=== PATIENT | female | born 1970 | race Caucasian/White ===

== ENCOUNTER 2020-03-06 07:37 | Outpatient (CLI) | payer OTHER, SELFPAY ==
--- NOTE | ~2020-03-06 | MM_ITS ---
EXAMINATION: MM screening [facility] HISTORY: Screening mammogram TECHNIQUE: Craniocaudal and mediolateral oblique 3-D tomosynthesis images were obtained and synthetic 2-D images were generated. CAD analysis was submitted and interpreted. COMPARISON: 02/03/2019, 06/28/2013 BREAST PARENCHYMAL COMPOSITION: The breasts are almost entirely fatty. FINDINGS: There is no evidence of suspicious mass, calcification, or architectural distortion to sugg est malignancy in either breast. There has been no suspicious interval change. IMPRESSION: 1. No mammographic evidence of malignancy. 2. Recommend routine screening mammography in one year. BI-RADS Category 1: Negative Reviewed, dictated and finalized at location A.
== END 2020-03-06 07:38 | disposition home or self-care (01) ==
PROVIDERS: Visit Provider Nurse Practitioner Obstetrics & Gynecology
DX: Z12.31 Encounter for screening mammogram for malignant neoplasm of breast (principal)
CPT/HCPCS: 77063; 77067

== ENCOUNTER 2020-09-18 18:22 | Emergency (ER) | payer OTHER, SELFPAY ==
--- NOTE | ~2020-09-18 | XR_ITS ---
EXAMINATION: XR hand LT 2V INDICATION: Left fourth and fifth proximal phalanx fractures post reduction TECHNIQUE: Two views of the left hand are obtained. COMPARISON: 1924 hours FINDINGS: Comminuted fractures at the bases of the fourth and fifth proximal phalanges are again note d. The fractures have been reduced to near-anatomic position. Slight varus angulation persists at the fifth proximal phalanx fracture site. Soft tissue swelling surrounds the fractures. No additional fr acture is identified. There does appear to be partial subluxation at the third metacarpophalangeal phil int. IMPRESSION: 1. Reduced fractures of the fourth and fifth proximal phalanges in near anatomic alignment. 2. Apparent subluxation at the third metacarpophalangeal joint. Reviewed, dictated and finalized at location A. [employer] IMPRESSION: 1. Reduced fractures of the fourth and fifth proximal phalanges in near anatomi c alignment. 2. Apparent subluxation at the third metacarpophalangeal joint.
--- NOTE | ~2020-09-18 | XR_ITS ---
EXAMINATION: XR hand LT 2V INDICATION: Left hand swelling, initial encounter TECHNIQUE: Two views of the left hand are obtained. COMPARISON: None available FINDINGS: There is an acute, traumatic, closed, comminuted transverse fracture at the base of the fou rth proximal phalanx. An acute, traumatic, closed, comminuted fracture is also seen at the base of th e fifth proximal phalanx. There appears to be palmar dislocation of the distal fracture fragment. Sof t tissue swelling surrounds the fractures. No additional acute osseous findings are evident. IMPRESSION: 1. Comminuted fractures at the bases of the fourth and fifth proximal phalanges. Reviewed, dictated and finalized at location A. [employer] IMPRESSION: 1. Comminuted fractures at the bases of the fourth and fifth proximal phalanges .
[2020-09-18 18:46] VITALS: BP 160/92; PULSE 72; RESP 18; TEMP 36.8; O2SAT 100
[2020-09-18] MEDS: KETOROLAC (*BKC) 60 MG/2 ML VIAL IM (19:05)
[2020-09-18] MEDS: TETANUS,DIPHTHERIA,AC PERTUSSIS ADULT 0.5 ML (ADACEL) IM (19:11)
--- NOTE | 2020-09-18 20:33 | ED.UPPEXIN ---
HPI - Extremity Injury (Upper) General Chief Complaint: Extremity Injury, Upper Stated Complaint: hand injury Source: patient and family Mode of arrival: ambulatory Limitations: no limitations History of Present Illness HPI narrative: this is a 50-year-old female that sustained a ground level fall after she tripped causing injury with some deformity dislocation of her left 4th and 5th fingers, has small abrasion to the 4th finger, there is no wrist pain has good range of motion in her wrists with a strong radial pulse on the left with no numbness or tingling in her fingers. complaint: injury to: left Onset (ago): hour(s) Other Extremity Injury: Left: fingers ( 4th and 5th finger injury with deformity) Other injuries: none Handedness: right Place: outdoors Severity: moderate Severity scale (1-10): 7 Relieving factors: cold therapy and immobilization Exacerbating factors: movement of extremity Context: fall Related Data Home Medications Medication Instructions Recorded Confirmed levothyroxine 75 mcg PO DAILY 09/18/20 09/18/20 Allergies Allergy/AdvReac Type Severity Reaction Status Date / Time No Known Allergies Allergy Verified 09/18/20 18:55 Review of Systems Review of Systems: All systems reviewed & are unremarkable except as noted in HPI and below PMFSH Past Medical History Medical History Hypothyroidism (acquired) Exam Const: General: no acute distress Orientation/consciousness: patient oriented x3 HENMT: Head: normal to inspection Eyes: Conjunctivae: conjunctivae normal Pupils: Equal, round and reactive pupils present Neck: Neck: normal visual inspection Chest: Chest palpation & inspection: normal inspection of the chest Cardio: Rate: regular rate Rhythm: regular rhythm GI: GI Palp: Yes Soft to palpation Auscultation: normal bowel sounds : General: Yes no CVA tenderness Skin: General skin exam: normal color Other: abrasions to the left 4th finger Neuro: General: patient oriented x3 Other: has mildly decreased range of motion in her 4th and 5th finger after a fall and dislocation of her 3rd 4th and 5th finger Extrem: General: edema Other: bruising and swelling with dislocation of her 3rd 4th and 5th finger Psych: Mental Status: mental status grossly normal Course Course Emergency Course: patient received Toradol, shot of morphine and updated with her tetanus. Review the x-rays which showed a fracture of the base of the 4th and 5th fingers with dislocation. Patient was given a digital nerve block and reduce the dislocation and and splinted the the fingers and hand Vital Signs Vital signs: Vital Signs Temperature 36.8 C 09/18/20 18:46 Pulse Rate 72 09/18/20 18:46 Respiratory Rate 18 09/18/20 18:46 Blood Pressure 160/92 H 09/18/20 18:46 Pulse Oximetry 100 09/18/20 18:46 Temperature 36.8 C 09/18/20 18:46 Pulse Rate 72 09/18/20 18:46 Respiratory Rate 18 09/18/20 18:46 Blood Pressure 160/92 H 09/18/20 18:46 Pulse Oximetry 100 09/18/20 18:46 Procedures Nerve Block Nerve Block 1: Nerve block date: 09/18/20 Nerve block time: 20:37 Time out performed: Yes Local Anesthetic: lidocaine 1% Amount of anesthesia used (mL): 5 Nerve Blocks: digital Patient Tolerated Procedure: well Additional Comments: reduced the dislocation of the left 3rd 4th and 5th fingers Critical Care Time Critical Care Time Critical Care Time: No Discharge Plan Discharge Clinical Impression: Dislocation of finger Qualifiers: Encounter type: initial encounter Qualified Code(s): S63.259A - Unspecified dislocation of unspecified finger, initial encounter Finger fracture, left Qualifiers: Encounter type: initial encounter Finger: ring finger Fracture type: closed Phalanx: proximal Fracture alignment: nondisplaced Qualified Code(s): S62.645A - Nondisplaced fra
[2020-09-18] MEDS: MORPHINE SULFATE (*CRX) 4 MG/ML INJ 2 MG IM (20:40)
[2020-09-18 20:59] VITALS: BP 120/86; PULSE 76; RESP 18; O2SAT 100
--- NOTE | 2020-09-20 10:39 | PM.IMHP ---
H&P: HPI History of Present Illness Date/Time: 09/20/20 10:45 Chief complaint: hand injury Narrative: Alena Aguilar is a 50 year old female fell on left outstretched hand 09/18/20. Evaluated in [place] [facility] and found to have fx/ dislocation left hand and fingers. Presents now for operative tx. Review of Systems Constitutional: Constitutional: Denies fever(s) Eyes: Eyes: Denies blurry vision ENT: Reports Normal hearing present Cardiovascular: Cardiovascular: Denies chest pain and Denies dyspnea Respiratory: Respiratory: Denies dyspnea and Denies wheezing Gastrointestinal: Gastrointestinal: Denies abdominal pain Genitourinary: Genitourinary: Denies urinary urgency Musculoskeletal: Musculoskeletal: Reports as per HPI and Denies numbness Integumentary/Breasts: Skin/Breast: Denies changing lesions and Denies sores Neurologic: Reports Normal hearing present, Denies behavioral changes, Denies confusion, Denies numbness and Denies convulsions Psychiatric: Psychiatric: Denies behavioral changes, Denies confusion and Denies hallucinations Endocrine: Endocrine: Denies heat intolerance Hematologic/Lymphatic: Hematologic/Lymphatic: Denies easy bleeding Allergic/Immunologic: Allergic/Immunologic: Denies wheezing PMFSH Past Medical History Medical History Hypothyroidism (acquired) Meds Home Medications and Allergies Home Medications Medication Instructions Recorded Confirmed Type levothyroxine 75 mcg PO DAILY 09/18/20 09/18/20 History oxycodone-acetaminophen [Percocet] 1 tablet PO Q6H PRN #20 tablet 09/18/20 Rx Allergies Allergy/AdvReac Type Severity Reaction Status Date / Time No Known Allergies Allergy Verified 09/18/20 18:55 Exam Const: General: healthy appearing; No in distress or confusion Orientation/consciousness: oriented to person, oriented to place, oriented to time and No confusion HENMT: Head: normal to inspection, normocephalic and atraumatic Eyes: Conjunctivae: conjunctivae normal Sclera: sclerae normal Neck: Neck: supple and nontender Resp: Effort & Inspection: normal respiratory effort and no audible wheezes Cardio: Rate: regular rate Rhythm: regular rhythm Skin: General skin exam: no rashes or lesions noted Neuro: General: oriented to person, oriented to place, oriented to time and No confusion Extrem: Right upper extremity: normal to inspection Left upper extremity: shoulder/upper arm no tenderness and no swelling, elbow/forearm no tenderness and no swelling, wrist normal ROM and radial pulse present 2+; no tenderness and no swelling and hand normal capillary refill, neuromotor exam normal, neurosensory exam normal Details: radial nerve sensory function normal, ulnar nerve sensory function normal, median nerve sensory function normal and digital nerve sensory function normal, tenderness of the 5th digit ( metacarpal neck), vascular exam normal capillary refill and abnormal ROM of finger (able to make 50% of fist) pain with active ROM of the 5th digit Psych: Affect: normal affect Assessment and Plan Assessment and plan (1) Finger fracture, left: Qualifiers: Encounter type: initial encounter Finger: ring finger Fracture alignment: displaced Fracture type: closed Phalanx: proximal Qualified Code(s): S62.615A - Displaced fracture of proximal phalanx of left ring finger, initial encounter for closed fracture Code(s): S62.609A - Fracture of unspecified phalanx of unspecified finger, initial encounter for closed fracture Status: Inactive Assessment and Plan: Discussed nonoperative and operative treatment options with the patient. Risks and benefits of each as well as alternatives were reviewed. All of the patient's questions were answered. The risks of surgery reviewed including but not limited to: Neurovascular damage, wound complication, infection, blood clot, pulmonary embolus, strok
== END 2020-09-18 20:59 | disposition home or self-care (01) ==
PROVIDERS: Emergency Provider Emergency Medicine
DX: S63.259A Unspecified dislocation of unspecified finger, initial encounter (principal); S62.645A Nondisplaced fracture of proximal phalanx of left ring finger, initial encounter for closed fracture; W01.0XXA Fall on same level from slipping, tripping and stumbling without subsequent striking against object, initial encounter
CPT/HCPCS: 26770; 73120; 90471; 90715; 96372; 99283; 99285; J1885; J2270

== ENCOUNTER 2020-09-20 10:37 | Outpatient (NON) | payer OTHER, SELFPAY ==
[2020-09-20 20:16] LABS: SARS-CoV-2 RNA PCR Negative
== END 2020-09-20 10:38 ==
LOC: ANHCOVIDDT 10:38
PROVIDERS: Visit Provider Orthopaedic Surgery
DX: S63.259A Unspecified dislocation of unspecified finger, initial encounter (principal); X58.XXXA Exposure to other specified factors, initial encounter; Z20.828 Contact with and (suspected) exposure to other viral communicable diseases
CPT/HCPCS: 87635; C9803; U0003

== ENCOUNTER 2020-09-22 10:49 | Day surgery (SDC) | payer OTHER, SELFPAY ==
[2020-09-22] VITALS (10 sets, daily range): BP systolic 97–131; BP diastolic 59–79; PULSE 63–100; RESP 8–16; TEMP 36.5; O2SAT 96–100; BMI 28.0
--- NOTE | ~2020-09-22 | XR_ITS ---
EXAMINATION: XR surgery orthopedic DATE: 09/22/2020 13:49 INDICATION: Pinning of fracture at the left fourth and fifth proximal phalanges. TECHNIQUE: 4 fluoroscopic images of the left hand were obtained during procedure performed by Dr. Dawn pandey. Radiologist was not present for the imaging or procedure. The amount of fluoroscopy time used d uring this procedure was 0.7 minutes. COMPARISON: 09/18/2020 FINDINGS: Interval reduction of the previously noted extra articular fractures at the proximal metaphyseal kraig ons of the left fourth and fifth proximal phalanges. Both fractures are subsequently fixed percutaneo us pins extending from the bases of the phalanges distally to the heads of the proximal phalanges. Do rsal dislocation at the third metacarpal phalangeal joint also appears to been reduced but without fi xation. Alignment is near-anatomic. No other fractures identified. IMPRESSION: 1. Fluoroscopy utilized during reduction of a third metacarpophalangeal dislocation and reduction and percutaneous pin fixation of extra articular fractures at the bases of the fourth and fifth proximal phalanges. See procedure note for further detail. Reviewed, dictated and finalized at location B. [employer]ER IMPRESSION: 1. Fluoroscopy utilized during reduction of a third metacarpophalangeal disloca tion and reduction and percutaneous pin fixation of extra articular fractures a t the bases of the fourth and fifth proximal phalanges. See procedure note for further detail.
--- NOTE | 2020-09-22 10:47 | WPDHPUPDATE1 ---
History and Physical Update Update Date/Time: 09/22/20 10:47 History and Physical has been reviewed, including an updated exam of the patient. There are NO changes in the patient's condition. Covid test negative. Risks, benefits, and alternatives have been discussed and questions answered. Patient agrees to proceed with procedure.
--- NOTE | 2020-09-22 11:21 | WPDANESEPPF ---
Anes - Initial Pre Proc Eval Procedure: Operation Date: 09/22/20 12:30 Proposed Procedures p Closed Reduction, Possible Pinning Left Third, Fourth, Fifth Fingers - Nick Martino MD Date/Time: 09/22/20 11:21 Surgeon: Nick Martino MD Pre Op Diagnosis: Fx Left 3,4,5, fingers Patient Data Age: 50 Gender: F Height: 1.75 m Weight: 89.6 kg Last Vital Signs Temp 36.5 C 09/22/20 10:51 Pulse 67 09/22/20 10:51 Resp 16 09/22/20 10:51 BP 130/79 09/22/20 10:51 Pulse Ox 98 09/22/20 10:51 Allergies Allergy/AdvReac Type Severity Reaction Status Date / Time No Known Allergies Allergy Verified 09/22/20 11:18 Home Medications Medication Instructions Recorded Confirmed Type levothyroxine 75 mcg PO QAM 09/18/20 09/22/20 History oxycodone-acetaminophen [Percocet] 1 tablet PO Q6H PRN #20 tablet 09/18/20 09/22/20 Rx esomeprazole magnesium [Nexium] 20 mg PO DAILY 09/22/20 09/22/20 History ibuprofen 400 mg PO Q6H PRN 09/22/20 09/22/20 History Patient hx anesthesia problems: none Family hx anesthesia problems: none [facility] Past Medical History Medical History (Updated 09/22/20 @ 11:22 by Demario Flores DO) GERD (gastroesophageal reflux disease) Hypothyroidism (acquired) Surgical History Surgical History (Updated 09/22/20 @ 11:22 by Demario Flores DO) History of Social History Social History Smoking status: Never smoker Alcohol use details: FEW DRINKS/YEAR Substance use: never Living arrangements: with family Spiritual care concerns: No Anes - Eval Final PreProcedure Day of Procedure 09/22/20 11:21 Patient weight: overweight Heart: regular rate and rhythm Lungs: clear to auscultation and normal air movement Airway: Mallampati scale class II Neurological: alert and oriented Last oral intake: >/= 8 hours ASA classification: II Emergent: no Anesthetic plan: proceed Anesthesia type and monitoring: general LMA and standard monitoring Informed Consent: The patient's anesthetic plan and its attendant risks and benefits were discussed with the patient/family/POA. Questions were solicited and answers provided to the satisfaction of the patient/family/POA.
[2020-09-22] MEDS: LACTATED RINGERS 1,000 ML 30 ML IV CONT (11:25)
--- NOTE | 2020-09-22 11:45 | SUR.PREOP ---
1120-2ND DIGIT LEFT HAND WITH POSITIVE SENSATION TO SIDE CLOSEST TO THUMB, NO SENSATION TO SIDE NEXT TO 3RD DIGIT, SLIGHT MOVEMENT. 3RD DIGIT WITH NO SENSATION TO SIDE NEXT TO 2ND DIGIT, POSITIVE SENSATION ON SIDE NEXT TO 4TH DIGIT, NO MOVEMENT. 4TH DIGIT WITH POSITIVE SENSATION AND MOVEMENT. ALL FINGERS BRUISED AND SWOLLEN. SPLINT IN PLACE TO LEFT HAND/WRIST AND NOT REMOVED.
[2020-09-22] MEDS: ceFAZolin 2 GM/D5W 50 ML 2 GM/50 ML BAG IVPB (13:08)
--- NOTE | 2020-09-22 14:15 | P.OP_ITS ---
Procedure Note - Detailed Date of procedure: 09/22/20 Pre-op diagnosis: Fx Left 3,4,5, fingers Metacarpal phalangeal dislocation left middle finger, proximal phalanx fracture left 4th and 5th finger Post-op diagnosis: same Procedure performed: Closed reduction left middle finger metacarpophalangeal dislocation, closed reduction percutaneous pin fixation left ring and small finger proximal phalanx fractures Description of procedure: Indications: Patient is a 50-year-old woman who fell onto her left outstretched hand sustained injury to the left middle ring and small fingers. She has a dislocation of the middle finger metacarpophalangeal joint. She has displaced and angulated fractures of the ring and small fingers. She presents now for operative treatment. What was done: Patient identified in the preoperative holding. Informed consent given. Operative extremity marked. Patient received intravenous antibiotics. Patient brought to the operating room where underwent general anesthetic by anesthesia team. Positioned supine on operating room table. Time-out performed confirming the patient, site of the surgery and the plan. Left hand prepped draped usual sterile surgical fashion using a ChloraPrep skin solution. The middle finger was addressed 1st. With gentle longitudinal and palmar directed distraction and displacement the metacarpophalangeal joint was able to be reduced with a palpable clunk. Image intensification confirmed reduction and stability of the joint. The ring finger was then addressed next. Longitudinal traction and palmar directed force the fracture was reduced and verified with image intensification. Fixation achieved with a 0.045 in K-wire placed percutaneously and verified with image intensification. The small finger was then addressed next. Longitudinal traction and palmar directed force the fracture was reduced and verified with image intensification. Fixation achieved with a 0.045 in K-wire placed percutaneously and verified with image intensification. Sterile dressing applied. Well-padded short-arm splint applied The patient was then woken from anesthesia, extubated and taken to the recovery room in stable condition. All sponge, needle, instrument counts were correct at the end of the case. Implants: 0.045 in K-wire x2 Anesthesia: GLMA Surgeon: Nick Martino MD Energy Assistant: 1st quality assurance assistant Estimated blood loss (mL): 2 Tourniquet time (min): 0 Drains: No Packing: No Pathology: none sent Complications: None Condition: stable Disposition: PACU Findings: Preoperatively light touch sensation decreased on the radial border of the middle finger and ulnar border of the index finger left hand. Good capillary refill in all fingers and light touch sensation intact throughout all other areas. After surgery good alignment of the fingers with no scissoring. Good capillary refill noted in all the fingertips.
[2020-09-22] MEDS: fentaNYL CITRATE INJ (*CRX) 100 MCG/2 ML VIAL 25 MCG IV PUSH ×2 (14:37→14:40)
[2020-09-22] MEDS: oxyCODONE HCL (*CRX) 5 MG TAB IR PO (15:29)
== END 2020-09-22 16:13 | disposition home or self-care (01) ==
PROVIDERS: Visit Provider Orthopaedic Surgery
PROC: (CPT 26705; principal; 2020-09-22 12:30)
DX: S62.615A Displaced fracture of proximal phalanx of left ring finger, initial encounter for closed fracture (principal); S62.617A Displaced fracture of proximal phalanx of left little finger, initial encounter for closed fracture; S63.263A Dislocation of metacarpophalangeal joint of left middle finger, initial encounter; W19.XXXA Unspecified fall, initial encounter; K21.9 Gastro-esophageal reflux disease without esophagitis; E03.9 Hypothyroidism, unspecified
CPT/HCPCS: 26705; 26735 ×2; A4565; A9270; C1713; J0690; J1100; J2250; J2405; J2704; J3010; J7120

== ENCOUNTER 2020-09-30 07:57 | Outpatient (CLI) | payer OTHER, SELFPAY ==
[2020-10-01 07:13] LABS: Hematocrit 37.8 % (35.0-49.0); Hemoglobin 12.3 g/dL (12.0-15.0); Mean Corpuscular HGB Conc 32.5 g/dL (32.0-36.0); Mean Corpuscular Hemoglobin 28.8 pg (27.0-31.0); Mean Corpuscular Volume 88.5 fL (78.0-102.0); Mean Platelet Volume 8.9 fl (9.2-11.8); Platelet Count Result 296 K/mm3 (150-420); Red Blood Count 4.27 M/mm3 (4.20-5.40); Red Cell Distribution Width 12.5 % (11.6-14.4); White Blood Count 5.5 K/mm3 (4.8-10.8)
[2020-10-01 08:15] LABS: Alanine Aminotransferase 37 U/L (14-59); Alkaline Phosphatase 127 U/L (46-116); Anion Gap 6 mmol/L (8-16); Aspartate Amino Transferase 18 U/L (15-37); Bilirubin,Total 0.6 mg/dL (0.00-1.00); Blood Urea Nitrogen 13 mg/dL (7-18); Calcium 8.9 mg/dL (8.5-10.1); Carbon Dioxide 30 mmol/L (21-32); Chloride 103 mmol/L (98-108); Cholesterol 187 mg/dL (0-200); Estimated Glomerular Filt Rate > 60; Glucose 81 mg/dL (70-99); HDL Direct 65 mg/dL (40-60); LDL Cholesterol Calculated 107 mg/dL (<130); Osmolality Calculated 287 mOsm/kg (285-295); Potassium 3.7 mmol/L (3.5-5.1); Sodium 139 mmol/L (136-145); Total Protein 7.5 g/dL (6.4-8.2); Triglycerides 74 mg/dL (0-150)
[2020-10-01 09:30] LABS: Thyroid Stimulating Hormone Reflex 0.52 u/IU/mL (0.36-3.74)
[2020-10-02 15:56] LABS: H pylori, Urea Breath NOT DETECTED (NOT DETECTED)
== END 2020-09-30 07:58 | disposition home or self-care (01) ==
LOC: CHSLAB 08:01
PROVIDERS: PCP Family Medicine; Visit Provider Family Medicine
DX: E03.9 Hypothyroidism, unspecified (principal); K21.9 Gastro-esophageal reflux disease without esophagitis
CPT/HCPCS: 36415; 80053; 80061; 83013; 84443; 85027

== ENCOUNTER 2020-10-27 07:48 | Outpatient (RCR) | payer OTHER, SELFPAY ==
--- NOTE | 2020-10-27 08:30 | OTOPEVAL ---
Thank you for referring Alena Aguilar to [facility].? The patient is scheduled to be seen for therapy? ____x/week for ___ weeks. Please review, sign, date and return this plan of care RANDOLPH. I agree with and certify that the following plan of care is medically necessary. Referring Physician Date Admitting Provider: Attending Provider: Nick Martino MD Referring Provider: *OT Outpatient Evaluation Start: 10/27/20 07:06 Freq: Status: Active Protocol: [place] 10/27/[place] 07:06 [facility] [place]27[place] 08[place]27 [facility] [id number] Therapy Assessment Status Assessment Status Assessment Status Evaluation Outpatient Past Medical History Neurological History Hx Neurological Disorders No Significant History Cardiovascular History Hx Cardiac Disorders No Significant History Respiratory History Hx Respiratory Disorders No Significant History Gastrointestinal History Hx Gastroesophageal Reflux Disease Yes Genitourinary History Hx Genitourinary Disorders No Significant History Musculoskeletal History Hx Fractures Yes: FRACTURES LT 3,4,5 FINGERS 09/18/20 Hematological History Hx Hematological Disorders No Significant History Endocrine History Hx Hypothyroidism Yes HEENT History Hx HEENT Disorders No Significant History Integumentary History Hx Skin Disorders No Significant History Reproductive History Hx Section Yes Hx Post Menopausal Yes Psychosocial History Hx Psychiatric Disorders No Significant History Pain History History of Any Previous or Ongoing No Significant History Instance of Pain Anesthesia History Hx Anesthesia Reactions No Significant History Evaluation Information Problem Diagnosis middle, ring and small finger fractures Onset 09/18/20 Subjective Information Patient reports that she fell Query Text:As Reported By Patient/ and dislocated her L middle Family finger and dislocated and fractured the ring and small fingers. She had surgery on 09/22/20 with pins placed and those were removed last tuesday. Patient reports that she has been trying to move it however it is very swollen and it is difficult to move. Patient has been issued an orthosis to wear if needed. 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
--- NOTE | 2020-11-12 08:16 | OTOPEVAL ---
Thank you for referring Alena Aguilar to [facility].? The patient is scheduled to be seen for therapy? ____x/week for ___ weeks. Please review, sign, date and return this plan of care RANDOLPH. I agree with and certify that the following plan of care is medically necessary. Referring Physician Date Admitting Provider: Attending Provider: Nick Martino MD Referring Provider: *OT Outpatient Evaluation Start: 10/27/20 07:06 Freq: Status: Active Protocol: Document 11/12/20 07:00 [facility] [place]Rec: 11/12/20 08:15 [facility] [place] [id number] Therapy Assessment Status Assessment Status Assessment Status Re-evaluation Outpatient Past Medical History Neurological History Hx Neurological Disorders No Significant History Cardiovascular History Hx Cardiac Disorders No Significant History Respiratory History Hx Respiratory Disorders No Significant History Gastrointestinal History Hx Gastroesophageal Reflux Disease Yes Genitourinary History Hx Genitourinary Disorders No Significant History Musculoskeletal History Hx Fractures Yes: FRACTURES LT 3,4,5 FINGERS 09/18/20 Hematological History Hx Hematological Disorders No Significant History Endocrine History Hx Hypothyroidism Yes HEENT History Hx HEENT Disorders No Significant History Integumentary History Hx Skin Disorders No Significant History Reproductive History Hx Section Yes Hx Post Menopausal Yes Psychosocial History Hx Psychiatric Disorders No Significant History Pain History History of Any Previous or Ongoing No Significant History Instance of Pain Anesthesia History Hx Anesthesia Reactions No Significant History Evaluation Information Problem Subjective Information Patient reports that she feels Query Text:As Reported By Patient/ like she is progressing a Family little more with each day. She reports that this weekend she was able to clean her house without assist and is able to now grasp a coffee cup . Patient is making progress on being able to open a door knob more consistently. 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 Pain Assessment Timing of Pain Assessment Timing of Pain Assessment Pre-Treatment Self Report Self Report Pain Level 0 Pain Score Pain Score 0: Self Report Upper Extremity Range of Motion Wrist Range of Motion Left Wrist Flexion - Active 70 Wrist Extension - Active 55 Finger Range of Motion Left
--- NOTE | 2020-12-09 13:26 | OTOPEVAL ---
Thank you for referring Alena Aguilar to [facility].? The patient is scheduled to be seen for therapy? ____x/week for ___ weeks. Please review, sign, date and return this plan of care RANDOLPH. I agree with and certify that the following plan of care is medically necessary. Referring Physician Date Admitting Provider: Attending Provider: Nick Martino MD Referring Provider: *OT Outpatient Evaluation Start: 10/27/20 07:06 Freq: Status: Active Protocol: Document 12/09/20 07:12 [facility] (Rec: 12/09/20 08:05 [facility] [id number]) Therapy Assessment Status Assessment Status Assessment Status Re-evaluation Outpatient Past Medical History Neurological History Hx Neurological Disorders No Significant History Cardiovascular History Hx Cardiac Disorders No Significant History Respiratory History Hx Respiratory Disorders No Significant History Gastrointestinal History Hx Gastroesophageal Reflux Disease Yes Genitourinary History Hx Genitourinary Disorders No Significant History Musculoskeletal History Hx Fractures Yes: FRACTURES LT 3,4,5 FINGERS 09/18/20 Hematological History Hx Hematological Disorders No Significant History Endocrine History Hx Hypothyroidism Yes HEENT History Hx HEENT Disorders No Significant History Integumentary History Hx Skin Disorders No Significant History Reproductive History Hx Section Yes Hx Post Menopausal Yes Psychosocial History Hx Psychiatric Disorders No Significant History Pain History History of Any Previous or Ongoing No Significant History Instance of Pain Anesthesia History Hx Anesthesia Reactions No Significant History Evaluation Information Problem Subjective Information Patient reports that she is Query Text:As Reported By Patient/ feels that her L hand gets to Family be stretched out and moving well but then wakes up the next morning and it is stiff again. Patient reports that when her hand is stiff in the mornings turning door knobs is difficult. She also reports difficulty opening tight jars and picking up small objects. Patient is able to drive with increased ease of grasping steering wheel as well as perform cooking, cleaning, laundry without assist. Patient was also able to recently perform the rowing
== END 2021-01-07 09:14 | disposition home or self-care (01) ==
LOC: CHSOT 07:48
PROVIDERS: PCP Family Medicine; Visit Provider Orthopaedic Surgery
DX: S62.615D Displaced fracture of proximal phalanx of left ring finger, subsequent encounter for fracture with routine healing (principal); S62.617D Displaced fracture of proximal phalanx of left little finger, subsequent encounter for fracture with routine healing
CPT/HCPCS: 97110; 97140; 97165

== ENCOUNTER 2024-04-13 08:38 | Outpatient (CLI) | payer OTHER, SELFPAY ==
[2024-04-13 08:53] LABS: Basophils Absolute Auto 0.04 K/mm3 (0.00-0.10); Basophils Percent Auto 0.8 % (0.0-1.0); Eosinophils Absolute Auto 0.31 K/mm3 (0.02-0.50); Eosinophils Percent Auto 5.8 % (1.0-6.0); Hematocrit 35.1 % (35.0-49.0); Hemoglobin 11.6 g/dL (12.0-15.0); Immature Granulocyte Absolute 0.02 K/mm3 (0.00-0.00); Immature Granulocyte Percent A 0.4 % (0.0-0.0); Lymphocytes Absolute Auto 1.18 K/mm3 (1.10-4.50); Lymphocytes Percent Auto 22.3 % (18.0-42.0); Mean Corpuscular Hemoglobin 28.8 pg (27.0-31.0); Mean Corpuscular Volume 87.1 fL (78.0-102.0); Monocytes Absolute Auto 0.38 K/mm3 (0.10-0.90); Monocytes Percent Auto 7.2 % (2.0-11.0); Neutrophils Absolute Auto 3.37 K/mm3 (1.70-7.20); Neutrophils Percent Auto 63.5 % (50.0-70.0); Platelet Count Result 253 K/mm3 (150-420); Red Blood Count 4.03 M/mm3 (4.20-5.40); Red Cell Distribution Width 12.5 % (11.6-14.4); White Blood Count 5.3 K/mm3 (4.8-10.8)
[2024-04-13 09:47] LABS: Alanine Aminotransferase 27 U/L (14-59); Albumin Level 3.6 g/dL (3.4-5.0); Alkaline Phosphatase 104 U/L (46-116); Anion Gap 8 mmol/L (4-12); Aspartate Amino Transferase 22 U/L (15-37); Bilirubin,Total 0.5 mg/dL (0.00-1.00); Blood Urea Nitrogen 6 mg/dL (7-18); Calcium 8.9 mg/dL (8.5-10.1); Carbon Dioxide 30 mmol/L (21-32); Chloride 104 mmol/L (98-108); Cholesterol 174 mg/dL (0-200); Estimated Glomerular Filt Rate > 60; Glucose 80 mg/dL (70-99); HDL Direct 62 mg/dL (40-60); LDL Cholesterol Calculated 100 mg/dL (<130); Osmolality Calculated 290 mOsm/kg (285-295); Potassium 3.9 mmol/L (3.5-5.1); Sodium 142 mmol/L (136-145); Total Protein 6.8 g/dL (6.4-8.2); Triglycerides 62 mg/dL (0-150)
[2024-04-13 09:50] LABS: Thyroid Stimulating Hormone Reflex 3.69 u/IU/mL (0.36-3.74)
== END 2024-04-13 08:39 | disposition home or self-care (01) ==
LOC: CHSLAB 08:40
PROVIDERS: PCP Family Medicine; Visit Provider Family Medicine
DX: Z00.00 Encounter for general adult medical examination without abnormal findings (principal); E03.9 Hypothyroidism, unspecified
CPT/HCPCS: 36415; 80053; 80061; 84443; 85025

== ENCOUNTER 2024-04-20 07:57 | Outpatient (CLI) | payer OTHER, SELFPAY ==
--- NOTE | ~2024-04-20 | MM_ITS ---
EXAMINATION: MM screening [facility] BI w dav HISTORY: Screening TECHNIQUE: Craniocaudal and mediolateral oblique 3-D tomosynthesis images were obtained and synthetic 2-D images were generated. CAD analysis was submitted and interpreted. COMPARISON: Comparison to multiple prior studies sequentially, with oldest reviewed study dated 02/03. BREAST PARENCHYMAL COMPOSITION: Not dense: There are scattered areas of fibroglandular density. FINDINGS: There is no evidence of suspicious mass, calcification, or architectural distortion to sugg est malignancy in either breast. There has been no suspicious interval change. IMPRESSION: 1. No mammographic evidence of malignancy. 2. Recommend routine screening mammography in one year. BI-RADS Category 1: Negative Reviewed, dictated and finalized at location B.
== END 2024-04-20 07:58 | disposition home or self-care (01) ==
LOC: CHSIMG 07:58
PROVIDERS: PCP Family Medicine; Visit Provider Family Medicine
DX: Z12.31 Encounter for screening mammogram for malignant neoplasm of breast (principal)
CPT/HCPCS: 77063; 77067